=== PATIENT | female | born 1950 | race Caucasian/White ===

== ENCOUNTER 2021-09-10 14:56 | Inpatient (IN) | payer BC ==
[~2021-09-10] VITALS: Ht 172.7 cm; Wt 121.1 kg
--- NOTE | 2021-09-10 15:30 | NUR ---
First encounter to pt at this time. pt biba ALS from work with hx TIA, COPD, bradycardia, throat/colon/squamous CA, here c/o near syncope, L arm weakness, migraine x 4hrs ago. L arm weakness resolved upon arrival. pt is AOx4, resp even and unlabored. 22G to LFA, labs drawn and sent out. noted colostomy. pt attached to front desk monitor. vss nad. wctm.
[2021-09-10 15:45] VITALS: BP_SYST 138
--- NOTE | 2021-09-10 15:45 | NUR ---
Patient bib acls with cc of cva symtoms, 4 hrs prior pt having migraine. cva symptoms resolved prior arrival. vital sign stable, afebrile, placed to room 6. endorsed to nurse baker.
--- NOTE | 2021-09-10 15:50 | NUR ---
ER at bedside examining patient.
[2021-09-10 15:59] LABS: EOSINOPHILS # (AUTO) 0.2 K/uL (0.0-0.4); HEMOGLOBIN 11.9 g/dL (12.0-16.0); LYMPHOCYTES # (AUTO) 1.8 K/uL (1.0-5.5); MONOCYTES # (AUTO) 0.4 K/uL (0.0-1.0); WHITE BLOOD COUNT (AUTO) 4.9 K/uL (4.8-10.8)
[2021-09-10 16:14] LABS: EOSINOPHILS % (AUTO) 3.3 % (0.0-4.0); HEMATOCRIT 37.6 % (36-48); LYMPHOCYTES % (AUTO) 36.2 % (20.5-51.5); MEAN CORPUSCULAR HEMOGLOBIN 23 pg (27-31); MEAN CORPUSCULAR HGB CONC 32 % (32-36); MEAN CORPUSCULAR VOLUME 73 fL (79.0-98.0); MONOCYTES % (AUTO) 7.6 % (1.7-9.3); NEUTROPHILS # (AUTO) 2.5 K/uL (1.8-7.7); NEUTROPHILS % (AUTO) 51.9 % (40.0-70.0); PLATELET COUNT (AUTO) 190 K/uL (130-430); RED BLOOD CELL COUNT(AUTO) 5.12 MIL/uL (4.2-6.2); RED CELL DISTRIBUTION WIDTH 18.7 % (9.0-15.0)
[2021-09-10 16:46] LABS: ANION GAP 7 (5-15); CALCIUM 8.4 mg/dL (8.4-11.0); CHLORIDE 102 mmol/L (98-107); CREATININE 0.77 mg/dL (0.55-1.30); GLUCOSE 114 mg/dL (70-99); POTASSIUM 4.3 mmol/L (3.5-5.1); SODIUM SERUM 138 mmol/L (136-145); UREA NITROGEN, BLOOD 19 mg/dL (8-21)
[2021-09-10 16:57] LABS: ALANINE AMINOTRANSFERASE 18 U/L (12-78); ALBUMIN 3.1 g/dL (3.4-4.8); ASPARTATE AMINOTRANSFERASE 48 U/L (10-37); TOTAL BILIRUBIN 0.8 mg/dL (0.0-1.0)
[2021-09-10 17:02] LABS: GFR AFRICAN AMERICAN 95 mL/min (>90)
[2021-09-10] MEDS ORDERED: ASPIRIN 81 MG TABLET(ECOTRIN) PO ONE (17:15)
--- NOTE | 2021-09-10 19:05 | NUR ---
spoke to dr sierra. admit to tele for TIA, cardiac diet, ASA 81 po daily, PT/OT eval, consult neuro M/ Ali. admit orders placed.
[2021-09-10] MEDS ORDERED: ZOLPIDEM TARTRATE 5 MG TABLET PO PRN (19:15)
[2021-09-10] MEDS ORDERED: DOCUSATE SODIUM 100 MG CAPSULE PO PRN (19:15)
[2021-09-10] MEDS ORDERED: LORazepam 2 MG/ML VIAL IVP PRN (19:15)
[2021-09-10] MEDS ORDERED: ACETAMINOPHEN 325 MG TABLET PO PRN (19:15)
[2021-09-10] MEDS ORDERED: MAGNESIUM SULFATE 50 ML IV PRN (19:15)
[2021-09-10] MEDS ORDERED: POTASSIUM CHLORIDE 20 MEQ TAB.PRT.SR PO PRN (19:15)
[2021-09-10] MEDS ORDERED: MORPHINE 2 MG/ML INJ. SYRINGE IVP PRN ×2 (19:15)
[2021-09-10] MEDS ORDERED: MUPIROCIN 2% TOPICAL OINTMENT 22 GM NS PRN (19:15)
--- NOTE | 2021-09-10 19:16 | NUR ---
report given to Jef OLIVAS
--- NOTE | 2021-09-10 20:25 | NUR ---
Admit bed requested Patient will be admitted to care of [[facility]]. Admitted to [TELE] unit. Diagnosis [TIA] Inpatient (Yes or No) [YES] Observation (Yes or No) [NO] Orientation concerns or request close to nursing station (Yes or No) [NO] Covid Status [PEND] On vent or bipap [NO] Isolation requirements [NO] Needs a sitter [NO] From Home (Yes or if No enter name of facility) [YES] Requires Dialysis (Yes or No) [NO] Med Rec Completed (Yes of No) [NO]
--- NOTE | 2021-09-10 20:43 | NUR ---
COVID SWAB SENT TO LAB.
[2021-09-10] MEDS ORDERED: HYDROcodone/ACETAMIN 10-325 MG TAB PO ONE (20:45)
--- NOTE | 2021-09-10 20:45 | NUR ---
PATIENT REFUSING ANY PO PILLS FOR PAIN RELIEF AT THIS TIME.
[2021-09-10] MEDS: ONDANSETRON HCL 4 MG/2 ML VIAL IVP PRN (20:54)
[2021-09-10] MEDS: IBUPROFEN 800 MG TABLET PO SCH (21:00)
--- NOTE | 2021-09-11 00:58 | NUR ---
Patient will be admitted to care of . Admitted to unit. Will go to room . Belongings list completed. Complete and up to date summary report printed. SBAR report to be given at bedside with opportunity for questions.
[2021-09-11] MEDS: IBUPROFEN 800 MG TABLET PO SCH ×4 (01:30→23:32)
[2021-09-11] MEDS ORDERED: HYDROmorphone 1 MG/ML INJ. CARTRIDGE IVP ONE (02:00)
[2021-09-11 02:16] VITALS: BP_SYST 126
[2021-09-11] MEDS: ONDANSETRON HCL 4 MG/2 ML VIAL IVP PRN (03:45)
--- NOTE | 2021-09-11 05:25 | NUR ---
CONSULTATION PAGED/CALLED Reason for Consultation: TIA Person Who was Notified: Consulting Physician: [employer] Consultant Specialty: NEUROLOGY Ordering Physician:
[2021-09-11] MEDS ORDERED: HYDROmorphone 2 MG/ML VIAL IVP ONE (07:30)
[2021-09-11 07:43] LABS: BASOPHILS % (AUTO) 0.7 % (0.0-2.0); EOSINOPHILS # (AUTO) 0.2 K/uL (0.0-0.4); HEMATOCRIT 33.8 % (36-48); HEMOGLOBIN 10.9 g/dL (12.0-16.0); LYMPHOCYTES # (AUTO) 1.5 K/uL (1.0-5.5); LYMPHOCYTES % (AUTO) 46.7 % (20.5-51.5); MEAN CORPUSCULAR HEMOGLOBIN 23 pg (27-31); MEAN CORPUSCULAR HGB CONC 32 % (32-36); MEAN CORPUSCULAR VOLUME 73 fL (79.0-98.0); MONOCYTES # (AUTO) 0.3 K/uL (0.0-1.0); MONOCYTES % (AUTO) 9.6 % (1.7-9.3); NEUTROPHILS # (AUTO) 1.3 K/uL (1.8-7.7); PLATELET COUNT (AUTO) 188 K/uL (130-430); RED BLOOD CELL COUNT(AUTO) 4.66 MIL/uL (4.2-6.2); RED CELL DISTRIBUTION WIDTH 18.9 % (9.0-15.0); WHITE BLOOD COUNT (AUTO) 3.3 K/uL (4.8-10.8)
[2021-09-11 08:18] LABS: CALCIUM 8.4 mg/dL (8.4-11.0); CREATININE 0.78 mg/dL (0.55-1.30); POTASSIUM 3.3 mmol/L (3.5-5.1)
[2021-09-11 08:30] VITALS: BP_SYST 139
[2021-09-11] MEDS: ASPIRIN 81 MG TAB.CHEW PO SCH (08:49)
[2021-09-11] MEDS: ATORVASTATIN 20 MG TABLET PO SCH (08:49)
[2021-09-11 12:00] VITALS: BP_SYST 136
--- NOTE | 2021-09-11 12:06 | NUR ---
0730 Pt. sleeping, no distress, call light in reach 0900 Pt. very demanding and rude, when attempting to explain that I am not able to speak towards the results of her cxr, she rudely stated, 'I don't need a disertation, i just asked about my results." 1130 Pt. wants to change her colostomy, asked her if the one we had was what she used and how she cuts it to fit her stoma. I also asked her if she had someone at home who helps her and she rudely stated that's not your concern. Nurse left room to try to find scissors and odor spray for change of colostomy. 1200 Notified by charge nurse that pt. requesting different nurse. Switch between patients to be done by nurses. 1220 Report given to MADDI Christianson.
[2021-09-11 16:15] VITALS: BP_SYST 124
--- NOTE | 2021-09-11 16:15 | NUR ---
PATIENT ROUNDS Patient resting in bed, No signs of pain, distress or SOB. Patient IV to RFA is patent and on SL. No infiltration noted. All needs met at this time, safety precautions in place, call light within reach. Will continue to monitor.
--- NOTE | 2021-09-11 18:45 | NUR ---
CLOSING NOTE Patient resting in bed, No signs of pain, distress or SOB. Patient is A/O x 4 Czech Speaking. Patient IV to RFA is patent and on SL. No infiltration noted. Colostomy bag changed today. All needs met at this time, safety precautions in place, call light within reach. Will Endorse to Nightshift Nurse.
[2021-09-11 20:00] VITALS: BP_SYST 126
[2021-09-11] MEDS: OXYCODONE HCL 40 MG PO SCH (23:32)
[2021-09-12] MEDS: ONDANSETRON HCL 4 MG/2 ML VIAL IVP PRN (05:05)
[2021-09-12 06:57] LABS: CALCIUM 8.2 mg/dL (8.4-11.0); CREATININE 0.74 mg/dL (0.55-1.30)
--- NOTE | 2021-09-12 07:09 | NUR ---
Pt asked to have her blanket that was laying next to her place on her. While assisting the pt I asked her if she lives and she lives alone and immediately she began yelling at me stating, "I don't see what me living alone has to do about anything. Don't touch the blanket just get out. " I reported the treatment
[2021-09-12 07:13] LABS: BASOPHILS % (AUTO) 0.8 % (0.0-2.0); EOSINOPHILS # (AUTO) 0.1 K/uL (0.0-0.4); EOSINOPHILS % (AUTO) 3.3 % (0.0-4.0); HEMOGLOBIN 10.4 g/dL (12.0-16.0); LYMPHOCYTES # (AUTO) 1.4 K/uL (1.0-5.5); LYMPHOCYTES % (AUTO) 39.4 % (20.5-51.5); MEAN CORPUSCULAR HEMOGLOBIN 24 pg (27-31); MEAN CORPUSCULAR HGB CONC 33 % (32-36); MEAN CORPUSCULAR VOLUME 73 fL (79.0-98.0); MONOCYTES # (AUTO) 0.3 K/uL (0.0-1.0); MONOCYTES % (AUTO) 8.8 % (1.7-9.3); NEUTROPHILS # (AUTO) 1.7 K/uL (1.8-7.7); PLATELET COUNT (AUTO) 195 K/uL (130-430); RED CELL DISTRIBUTION WIDTH 18.8 % (9.0-15.0); WHITE BLOOD COUNT (AUTO) 3.5 K/uL (4.8-10.8)
[2021-09-12 07:30] VITALS: BP_SYST 118
--- NOTE | 2021-09-12 07:30 | NUR ---
OPEN NOTE Patient resting in bed, No signs of pain, distress or SOB. Patient is A/O x 4 [place] Speaking. Patient IV to RFA is patent and on SL. No infiltration noted. Colostomy bag in place and intact. All needs met at this time, safety precautions in place, call light within reach and orientation to room given. Will continue to monitor.
[2021-09-12 08:02] LABS: NEUTROPHILS % (AUTO) 47.7 % (40.0-70.0)
[2021-09-12] MEDS: ATORVASTATIN 20 MG TABLET PO SCH (09:03)
[2021-09-12] MEDS: ASPIRIN 81 MG TAB.CHEW PO SCH (09:03)
[2021-09-12] MEDS: IBUPROFEN 800 MG TABLET PO SCH ×3 (09:04→22:08)
[2021-09-12] MEDS: OXYCODONE HCL 40 MG PO SCH ×2 (09:04→22:09)
[2021-09-12] MEDS ORDERED: HYDROmorphone 2 MG/ML VIAL IVP ONE (11:00)
[2021-09-12 12:00] VITALS: BP_SYST 116
--- NOTE | 2021-09-12 12:00 | NUR ---
Patient Rounds Patient resting in bed comfortable. no pain, no sob, no distress. IV to RFA 20gague patent and on SL. All needs met, call light within reach, Safety precautions in place. Will continue to monitor.
--- NOTE | 2021-09-12 15:53 | NUR ---
Dietitian Recommendations * Continue Cardiac diet LP, MS, RD Please refer to Nutrition Assessment for details. Addendum: 09/12/21 at [address] Amended: Links added.
[2021-09-12 16:10] VITALS: BP_SYST 141
[2021-09-12] MEDS ORDERED: IMI50 PO (16:20)
[2021-09-12] MEDS ORDERED: LINA145C PO (16:20)
[2021-09-12] MEDS ORDERED: NORT50CA5 PO (16:20)
[2021-09-12] MEDS ORDERED: UBRO100T (16:20)
[2021-09-12] MEDS ORDERED: OXYC20TA55 PO (16:20)
[2021-09-12] MEDS ORDERED: TIZA2CAP7 PO (16:20)
[2021-09-12] MEDS ORDERED: THYR300T PO (16:20)
[2021-09-12] MEDS ORDERED: ROPI4TAB22 PO (16:20)
[2021-09-12] MEDS ORDERED: DULO60CA42 PO (16:20)
[2021-09-12] MEDS ORDERED: LORA2TAB95 PO (16:20)
[2021-09-12] MEDS ORDERED: MONT-40 PO (16:20)
[2021-09-12] MEDS ORDERED: DEXL60CA4 PO (16:20)
[2021-09-12] MEDS ORDERED: SUMAtriptan SUCCINATE 50 MG TABLET PO PRN (16:45)
[2021-09-12] MEDS ORDERED: LORazepam 1 MG TABLET PO PRN (16:45)
[2021-09-12 20:40] VITALS: BP_SYST 129
[2021-09-12] MEDS ORDERED: NON-FORMULARY MEDICATION (Linaclotide (Linzess) 145 MCG) PO SCH (21:00)
[2021-09-12] MEDS ORDERED: oxyCODONE HCL 10 MG TAB.ER.12H PO SCH (21:00)
[2021-09-12] MEDS ORDERED: NON-FORMULARY MEDICATION (Dexlansoprazole (Dexilant) 60 MG) PO SCH (21:00)
[2021-09-12] MEDS ORDERED: PANTOPRAZOLE SODIUM 40 MG TAB PO SCH (21:00)
[2021-09-12] MEDS ORDERED: TIZANIDINE HCL 2 MG PO SCH (21:00)
[2021-09-12] MEDS: MONTELUKAST 10 MG TABLET PO SCH (22:08)
[2021-09-12] MEDS: DULoxetine HCL 30 MG CAPSULE.DR (CYMBALTA) PO SCH (22:10)
[2021-09-12] MEDS: tiZANidine HCL 4 MG TABLET PO SCH (22:11)
[2021-09-12] MEDS: NORTRIPTYLINE HCL 25 MG CAPSULE PO SCH (22:11)
[2021-09-13 00:47] VITALS: BP_SYST 129; BP_SYST 132
--- NOTE | 2021-09-13 03:05 | NUR ---
Rounds Patient sleeping in bed, unlabored breathing on room air. Call light in reach, bed low and locked, fall and safety precautions in place.
[2021-09-13] MEDS: THYROID 30 MG TABLET PO SCH (06:58)
[2021-09-13] MEDS ORDERED: THYROID PO SCH (07:00)
--- NOTE | 2021-09-13 07:04 | NUR ---
Closing Patient resting in bed, unlabored breathing on room air. AOx4. No complaint of pain, numbness, or tingling. Ambulatory with steady gait to bathroom. Call light in reach, bed low and locked, fall and safety precautions in place. Addendum: 09/13/21 at 0706 by Jayda Villegas RN Amendment: Patient reported migraine this morning. Given Imitrex PRN.
--- NOTE | 2021-09-13 07:30 | NUR ---
rn opening note report was endorsed by night nurse. patient is laying in bed, wants to be left alone to rest, call light is with her educated to use for assistance. no other needs at this time.
[2021-09-13 07:48] LABS: BASOPHILS % (AUTO) 0.6 % (0.0-2.0); EOSINOPHILS # (AUTO) 0.2 K/uL (0.0-0.4); EOSINOPHILS % (AUTO) 4.6 % (0.0-4.0); HEMATOCRIT 33.7 % (36-48); HEMOGLOBIN 10.9 g/dL (12.0-16.0); LYMPHOCYTES # (AUTO) 1.5 K/uL (1.0-5.5); LYMPHOCYTES % (AUTO) 40.3 % (20.5-51.5); MEAN CORPUSCULAR HEMOGLOBIN 24 pg (27-31); MEAN CORPUSCULAR HGB CONC 32 % (32-36); MEAN CORPUSCULAR VOLUME 73 fL (79.0-98.0); MONOCYTES # (AUTO) 0.3 K/uL (0.0-1.0); MONOCYTES % (AUTO) 9.2 % (1.7-9.3); NEUTROPHILS # (AUTO) 1.7 K/uL (1.8-7.7); NEUTROPHILS % (AUTO) 45.3 % (40.0-70.0); PLATELET COUNT (AUTO) 172 K/uL (130-430); RED BLOOD CELL COUNT(AUTO) 4.59 MIL/uL (4.2-6.2); RED CELL DISTRIBUTION WIDTH 18.4 % (9.0-15.0); WHITE BLOOD COUNT (AUTO) 3.7 K/uL (4.8-10.8)
[2021-09-13 08:00] VITALS: BP_SYST 129
[2021-09-13] MEDS: ATORVASTATIN 20 MG TABLET PO SCH (09:00)
[2021-09-13 09:20] LABS: CALCIUM 8.1 mg/dL (8.4-11.0); CREATININE 0.76 mg/dL (0.55-1.30); POTASSIUM 4.2 mmol/L (3.5-5.1)
[2021-09-13] MEDS: OXYCODONE HCL 40 MG PO SCH ×2 (10:05→21:00)
[2021-09-13] MEDS: IBUPROFEN 800 MG TABLET PO SCH ×3 (10:05→22:14)
[2021-09-13] MEDS: ASPIRIN 81 MG TAB.CHEW PO SCH (10:05)
--- NOTE | 2021-09-13 10:08 | NUR ---
medication Addendum: 09/13/21 at 1801 by Sanjana Junior RN patients scheduled medication given per order. patient is awake and alert tolerated medication well. patient has all safety precautions in place. call light is with her educated to use for assistance. no other needs at this time.
[2021-09-13 12:00] VITALS: BP_SYST 119
--- NOTE | 2021-09-13 13:00 | NUR ---
colostomy care Patients assisted with changing of colostomy bag. Patient has no complaints at this time. no other needs at this time.
[2021-09-13] MEDS: ONDANSETRON HCL 4 MG/2 ML VIAL IVP PRN ×2 (14:37→21:08)
--- NOTE | 2021-09-13 15:19 | NUR ---
METAL GRINDER ACSW Krista received a request from BRENDON Allan for social work support as requested by patient/ ACSW met with patient at bedside. PERIANESTHESIA RN completed introductions and provided business card. 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 ACSW offered patient number to APS as these were her allegations and ACSW was not aware of what they were. Patient became upset but stated she was unable to share. ACSW again inquired into concerns, but patient stated "nevermind i've known about licensing before you were even born". ACSW again tried to offer patient information but patient declined.
[2021-09-13 16:00] VITALS: BP_SYST 122
--- NOTE | 2021-09-13 16:30 | NUR ---
paging md for patient she complains of abdominal pain she states feels like her abdomen is twisting and that she has a blockage, with nausea and acid reflex.
--- NOTE | 2021-09-13 16:32 | NUR ---
Attending Md divisional storekeeper Dr Deleon, was called, re: pt is in severe abdominal pain. Spoke to Debbie.
[2021-09-13] MEDS ORDERED: ONDANSETRON HCL 4 MG/2 ML VIAL IVP ONE (17:00)
--- NOTE | 2021-09-13 17:11 | NUR ---
spoke with MD received orders. patient given one time dose of zofran, picked up by radiology for ct via wheel chair.
--- NOTE | 2021-09-13 18:04 | NUR ---
rn closing note patient is sitting in bed back from CT, eating her dinner. patient states she is hungry and even though her stomach hurts she wants to eat. no results noted in chart. patient educated to use call light for assistance, call light is with her.
--- NOTE | 2021-09-13 19:24 | NUR ---
OPENING NOTE REPORT RECEIVED FROM DAYSHIFT NURSE. PATIENT RECEIVED LYING IN BED, AWAKE, ALERT, NO S/S OF ACUTE DISTRESS. PATIENT DENIES PAIN. BREATHING EVEN AND UNLABORED, ON ROOM AIR. IV SITE IS PATENT, NO SIGNS OF INFILTRATION OR INFECTION NOTED. CALL LIGHT WITH PATIENT, DEMONSTRATED BACK PROPER USE. BED IS LOCKED AND AT LOWEST POSITION. WILL CONTINUE TO MONITOR.
[2021-09-13 20:00] VITALS: BP_SYST 124
[2021-09-13] MEDS ORDERED: HYDROmorphone 1 MG/ML INJ. CARTRIDGE IVP ONE (20:45)
[2021-09-13] MEDS: PANTOPRAZOLE SODIUM 40 MG TAB PO SCH (21:03)
[2021-09-13] MEDS: tiZANidine HCL 4 MG TABLET PO SCH (22:13)
[2021-09-13] MEDS: DULoxetine HCL 30 MG CAPSULE.DR (CYMBALTA) PO SCH (22:13)
[2021-09-13] MEDS: NORTRIPTYLINE HCL 25 MG CAPSULE PO SCH (22:14)
[2021-09-13] MEDS: MONTELUKAST 10 MG TABLET PO SCH (22:14)
[2021-09-14] VITALS: BP_SYST 114
--- NOTE | 2021-09-14 00:32 | NUR ---
CONSULTATION CALLED FOR DR. QUINTANILLA FOR CONSULT OF ABDOMINAL PAIN ORDER BY SPOKE WITH IMANI
[2021-09-14] MEDS: OXYCODONE HCL 40 MG PO SCH (03:37)
[2021-09-14 05:16] LABS: BASOPHILS % (AUTO) 0.7 % (0.0-2.0); EOSINOPHILS # (AUTO) 0.2 K/uL (0.0-0.4); EOSINOPHILS % (AUTO) 4.1 % (0.0-4.0); HEMATOCRIT 33.6 % (36-48); LYMPHOCYTES # (AUTO) 1.4 K/uL (1.0-5.5); LYMPHOCYTES % (AUTO) 35.2 % (20.5-51.5); MEAN CORPUSCULAR HEMOGLOBIN 24 pg (27-31); MEAN CORPUSCULAR HGB CONC 33 % (32-36); MEAN CORPUSCULAR VOLUME 73 fL (79.0-98.0); MONOCYTES # (AUTO) 0.3 K/uL (0.0-1.0); MONOCYTES % (AUTO) 8.4 % (1.7-9.3); NEUTROPHILS # (AUTO) 2.1 K/uL (1.8-7.7); NEUTROPHILS % (AUTO) 51.6 % (40.0-70.0); PLATELET COUNT (AUTO) 153 K/uL (130-430); RED BLOOD CELL COUNT(AUTO) 4.61 MIL/uL (4.2-6.2); WHITE BLOOD COUNT (AUTO) 4.1 K/uL (4.8-10.8)
[2021-09-14] MEDS: THYROID 30 MG TABLET PO SCH (06:31)
--- NOTE | 2021-09-14 06:36 | NUR ---
CLOSING NOTE PATIENT IN BED RESTING. NO S/S OF ACUTE DISTRESS NOTED. BREATHING EVEN AND UNLABORED. HOB RAISED. IV SITE PATENT, NO SIGNS OF INFILTRATION OR INFECTION NOTED. ALL NEEDS MET THROUGHOUT SHIFT. FALL, SAFETY PRECAUTIONS MAINTAINED THROUGHOUT SHIFT. WILL CONTINUE TO MONITOR UNTIL PATIENT IS ENDORSED TO ONCOMING DAYSHIFT NURSE.
[2021-09-14 08:02] VITALS: BP_SYST 118
--- NOTE | 2021-09-14 08:02 | NUR ---
INITIAL ROUNDS Received pt AAOx4, no s/s resp distress, no c/o pain or discomfort. Neuro checks completed and intact. No facial droop noted. Pt observed ambulating to the bathroom with steady gait. Plan of care for the day reviewed with pt-pt verbalized her understanding. Pain management, disease process, skin and safety discussed-teach back done. Call light within reach.
[2021-09-14 08:21] LABS: CALCIUM 8.2 mg/dL (8.4-11.0); CREATININE 0.8 mg/dL (0.55-1.30); POTASSIUM 4.1 mmol/L (3.5-5.1)
[2021-09-14] MEDS: IBUPROFEN 800 MG TABLET PO SCH (09:20)
[2021-09-14] MEDS: PANTOPRAZOLE SODIUM 40 MG TAB PO SCH (09:20)
[2021-09-14] MEDS: ATORVASTATIN 20 MG TABLET PO SCH (09:20)
[2021-09-14] MEDS: ASPIRIN 81 MG TAB.CHEW PO SCH (09:22)
[2021-09-14 12:36] VITALS: BP_SYST 110
--- NOTE | 2021-09-14 14:20 | NUR ---
PATIENT DISCHARGED Patient given medication reconciliation form and D/C instructions. Exit Care on TIA, Lipitor, Protonix and Motrin explained and provided. Patient verbalized her understanding. MD discussed with patient the results and treatment provided. Ambulatory with steady gait for discharge to home. Patient in stable condition, ID band removed. IV catheter removed, intact and dressing applied, no active bleeding. Patient educated on pain management. All belongings sent with patient. patient left floor via wheelchair to private vehicle in no distress.
--- NOTE | 2021-09-16 08:36 | NUR ---
Dispo code 01
== END 2021-09-14 14:20 | disposition home or self-care (01) | DRG 69 ==
LOC: SED 14:56 → SMU 19:03 → STU 09-11 00:50
PROVIDERS: ADMIT Family Medicine; ATTEND Family Medicine
PROC: 4A00X4Z Measurement of Central Nervous Electrical Activity, External Approach (ICD-10-PCS; principal; 2021-09-12)
DX: G45.9 Transient cerebral ischemic attack, unspecified (principal); E44.1 Mild protein-calorie malnutrition; Z68.41 Body mass index [BMI] 40.0-44.9, adult; Z20.822 Contact with and (suspected) exposure to COVID-19; I10 Essential (primary) hypertension; E11.9 Type 2 diabetes mellitus without complications; Z96.649 Presence of unspecified artificial hip joint; Z96.659 Presence of unspecified artificial knee joint; D64.9 Anemia, unspecified; G43.909 Migraine, unspecified, not intractable, without status migrainosus; Z86.73 Personal history of transient ischemic attack (TIA), and cerebral infarction without residual deficits; Z79.4 Long term (current) use of insulin; Z88.5 Allergy status to narcotic agent; Z88.0 Allergy status to penicillin; Z88.8 Allergy status to other drugs, medicaments and biological substances
CPT/HCPCS: 36415; 70450-TC; 70551; 71045; 73010-TC; 76376; 80048; 80053; 82009; 83036; 83735; 84484; 85025; 93005; 93306; 93880; 95816; 99285; G0378; J1170; J2060; J2405